=== PATIENT | female | born 1955 | race Caucasian/White ===

== ENCOUNTER → 2016-12-14 | Day surgery (SDC) | payer OTHER, SELFPAY | PROVIDERS: Family Provider Family Medicine; Visit Provider Nurse Anesthetist, Certified Registered | DX: M51.16 Intervertebral disc disorders with radiculopathy, lumbar region (principal) | CPT/HCPCS: 62323; 62322; J1040; Q9966 ==

== ENCOUNTER → 2017-03-12 11:40 | Outpatient (POV) | payer OTHER, SELFPAY ==
[2017-03-12 12:14] VITALS: BP 150/82; PULSE 78; RESP 18; O2SAT 94
--- NOTE | 2017-03-12 12:18 | P.CONS_ITS ---
[facility] Pain Management SOAP Note Subjective:: This patient is a pleasant 62-year-old white female who we are treating for low back pain with lumbar radicular symptoms. She did with previous lumbar epidural steroid injections in the past her last one being in January. She now has some increasing numbness down her leg which is affecting her gait. Worse is down her left leg. Her left leg does give out from time to time. Her last CT scan was back in November. I do believe that she would benefit from neurosurgical consult to see if any surgical intervention was with her numbness and nerve compression which is now affecting her gait. Objective:: Alert and oriented ?3 no acute distress. Patient does have an abnormal gait was antalgic left. Strength of the lower extremities spell a 5 on the right and 4 out of 5 on the left. There is some gross sensory deficit down her left leg. Assessment:: Degenerative disc disease of lumbar spine with lumbar radiculopathy symptoms with disc herniation and significant neuroforaminal narrowing. Plan:: We will refer her to Dr. Mart for neurosurgical evaluation. We will follow-up with her after this appointment.
== END ==
PROVIDERS: Family Provider Family Medicine; PCP Family Medicine; Visit Provider Anesthesiology
DX: M51.16 Intervertebral disc disorders with radiculopathy, lumbar region (principal); M48.061 Spinal stenosis, lumbar region without neurogenic claudication
CPT/HCPCS: 99212

== ENCOUNTER → 2018-01-13 15:01 | Outpatient (POV) | payer OTHER, SELFPAY ==
[2018-01-13 15:36] VITALS: BP 170/96; PULSE 66; RESP 18; O2SAT 98; BMI 27.7
--- NOTE | 2018-01-14 07:53 | P.CONS_ITS ---
[facility] Pain Management SOAP Note Subjective:: Patient is a pleasant 62-year-old white female who presents today for follow-up. Patient was seen in the beginning of the urinary clinic and was sent to Dr. Irvin for neurosurgical evaluation. Patient ended up having neck surgery. Patient states her low back is what is giving her the most pain at this time. Patient states she has pain when she is walking and standing. Patient states that she has numbness and tingling going down her legs at this time. Patient states is relieved with forward leaning motion. Patient does have an old CT showing spinal stenosis. Patient states she has had a recent MRI at Dr. Irvin is however we have not received a copy of this. ROS General: no recent weight change, no fever, no sleep disturbances Respiratory: no cough, no shortness of air, no recurring pulmonary infections Cardiovascular/Peripheral Vascular: No chest pain, No palpitations, no edema, no shortness of breath. Gastrointestinal: no incontinence, normal bowel movements reported Genitourinary: no incontinence Musculoskeletal: Back pain, leg pain Psychiatric: normal mood/ affect Neurological: [denies weakness in extremities], [denies balance issues] Objective:: Physical Exam General: Alert and oriented x3, no acute distress, pleasant and cooperative, [on room air] Lungs: Resps E/U, Symmetrical chest expansion, Eyes: PERRL Musculoskeletal: Flexion and extension of lumbar spine somewhat guarded secondary to pain, deep tendon reflexes normal, strength in upper and lower extremities [5/5], slightly antalgic gait noted Neurological: speech clear, production operations inspector equal, no gross sensory deficits Assessment:: Degenerative disc disease lumbar spine with lumbar radiculopathy and post laminectomy syndrome cervical spine, spinal stenosis Plan:: We will have the patient sign a release of information to receive her low back MRI. If the patient has worsening spinal stenosis she may be a candidate for the mild procedure. After review of the MRI and we will set her up for this procedure if it is appropriate. This note was dictated using voice recognition software and may contain errors or omissions
== END ==
PROVIDERS: PCP Nurse Practitioner Family; Visit Provider Clinical Nurse Specialist Family Health
DX: M51.16 Intervertebral disc disorders with radiculopathy, lumbar region (principal); M96.1 Postlaminectomy syndrome, not elsewhere classified; M48.00 Spinal stenosis, site unspecified
CPT/HCPCS: 99213

== ENCOUNTER → 2018-11-26 11:04 | Outpatient (CLI) | payer OTHER, SELFPAY ==
[2018-11-28 06:23] LABS: C difficile Toxins AB, EIA Negative (Negative)
== END ==
PROVIDERS: PCP Nurse Practitioner Family; Visit Provider Nurse Practitioner Family
DX: K52.9 Noninfective gastroenteritis and colitis, unspecified (principal)
CPT/HCPCS: 87045; 87177; 87205; 87324

== ENCOUNTER → 2023-02-06 10:34 | Outpatient (POV) | payer MEDICARE, SELFPAY ==
--- NOTE | 2023-02-06 11:15 | EXP.PAIN.OV ---
HPI Data of Consult Patient: new to practice Consult date: 02/06/23 Requesting Physician: Myranda Mart APRN Primary Care Provider: Jie Ferro Consult Narrative Reason for consult: Low back pain, left foot pain, neck pain, bilateral shoulder pain History of present illness: Ms. Donahue is a 67 year old female who presents today as a new patient. She is a referral from Jie Ferro's office. Today she rates her pain an 8 out of 10. Patient states she has pain in multiple locations including her neck with radiating symptoms into her bilateral shoulders and low back with radiating symptoms to her left foot. She does also state that she has numbness and tingling down her bilateral upper extremities as well as her lower extremities. She does describe her pain as an aching, throbbing sensation with occasional sharp shooting pains or even shocking like sensations. Patient states this is been going on for years and progressively worsened over time. Patient does have a history of neck surgery as well as lumbar fusion possibly. Patient is unsure exactly what procedure she did have done. Patient did see orthopedic surgeon Dr. Irvin in [place] and did have injections as well in the past. Patient was previously with the pain management company with Dr. Galicia. Patient states she had multiple injections however did not really have significant improvement. Patient denies any recent imaging. Patient does have a spinal cord stimulator in place however she is unsure of what company this is. She states this was implanted by her last pain management and that she has not had it reprogrammed for approximately 1 year. Patient states that that office stated that she did not need to be reviewed program but once a year. Patient states that she is switching from their office due to the convenience of location. Patient states that it is harder to drive to [place] and she lives in [place]. Patient states it has been over a year since she has had it reprogrammed. Patient has tried physical therapy in the past however this made her symptoms worse. She has tried [id number] medications such as Tylenol along with heat and ice and topicals with no additional relief. She states that she was told not to take ibuprofen however that is the only thing that gives her improvement so she does continue to use this medication however it does cause some GI upset. Patient does have a history of atrial fibrillation and sees a coding machine operator. Patient is not currently on any scheduled medications. Her Doni has been reviewed and appropriate. Patient does state that she has difficulty pain co-pays and that this has caused her to not go to the doctor very often. CC: Myranda Mart APRN [facility] Disclaimer: The information contained in this section may have been updated after the patient was seen, as this information can be updated by other users. Medical History (Updated 02/06/23 @ 11:42 by Myranda Mart APRN) Anxiety COPD (chronic obstructive pulmonary disease) Depression GERD (gastroesophageal reflux disease) HLD (hyperlipidemia) HTN (hypertension) Family History (Updated 02/06/23 @ 10:44 by Paulina Marmolejo RN) Other Unknown family medical history Social History (Updated 02/06/23 @ 10:45 by Paulina Marmolejo RN) Smoking Status: Current every day smoker tobacco type: cigarettes alcohol intake: never current occupational status: unemployed Travel in the last 8 weeks: None Review of Systems Review of Systems Review of systems:: pertinent systems reviewed and negative unless documented below Review of systems (narrative): Review of Systems: General: No recent weight changes, no fever, no sleep disturbances Respiratory: No cough, no shortness of air, no recurring pulmonary infections Cardiovascular/peripheral vascular: No chest pain, no palpitations, no edema, no shortness of breath Gastrointestinal: No new onset incontinence, normal bowel m
[2023-02-06 11:43] VITALS: BP 143/68; PULSE 61; RESP 18; O2SAT 98; BMI 26.6
== END ==
PROVIDERS: PCP Nurse Practitioner Family; Visit Provider Nurse Practitioner Family
DX: G89.4 Chronic pain syndrome (principal); M50.10 Cervical disc disorder with radiculopathy, unspecified cervical region; M51.16 Intervertebral disc disorders with radiculopathy, lumbar region
CPT/HCPCS: 99202; G0463

== ENCOUNTER → 2023-02-20 15:00 | Outpatient (POV) | payer MEDICARE, SELFPAY ==
[2023-02-20 15:28] VITALS: BP 162/66; PULSE 66; RESP 18; O2SAT 97; BMI 25.8
--- NOTE | 2023-02-20 15:37 | EXP.PAIN.SOA ---
[facility] Pain Management SOAP Note Subjective:: Patient is a pleasant 68-year-old female who presents today for 2-week follow-up. We are currently treating the patient for degenerative disc disease of cervical and lumbar spine with cervical and lumbar radiculopathy symptoms, chronic pain syndrome. Today she rates her pain a 7 out of 10. Patient denies any new trauma or injury. She denies any change location or type of pain that she experiences. At our last visit we did order her compounding cream. She states she did not hear from the pharmacy regarding this medication. Patient states she continues to have chronic low back and leg pain. She does state that she believes a lot of it has to do with arthritis. She states she has recently been prescribed antibiotic and steroids for an upper respiratory infection. Patient states that the steroids really have made a difference. She is asking whether or not if that something that can be used long-term.Patient does have a spinal cord stimulator in place however it has not been reprogrammed for over a year. At our last visit we did discuss that we would have the vaccine customer representative present to reprogram her for better coverage. Patient is on a blood thinner daily for history of A-fib. Her Doni has been reviewed and is appropriate. Review of Systems: General: No recent weight changes, no fever, no sleep disturbances Respiratory: No cough, no shortness of air, no recurring pulmonary infections Cardiovascular/peripheral vascular: No chest pain, no palpitations, no edema, no shortness of breath Gastrointestinal: No new onset incontinence, normal bowel movements reported Genitourinary: No new onset incontinence Musculoskeletal: Low back pain Psychiatric: [Normal mood/affect] Neurological: [Denies weakness in extremities], [denies balance issues] Objective:: Physical Exam: General: Alert and oriented x3, no acute distress, pleasant and cooperative Lungs: Respirations even and unlabored, symmetrical chest expansion Eyes: PERRL Musculoskeletal: Flexion and extension of lumbar [spine] somewhat guarded secondary to pain, [antalgic gait noted] Neurological: Speech clear, no gross sensory deficit Assessment:: Degenerative disc disease of cervical and lumbar spine with cervical and lumbar radiculopathy symptoms, chronic pain syndrome Plan:: Spinal cord stimulator vaccine customer representative was present today and was able to reprogram the patient with better coverage. I will reach out to the local pharmacy regarding the order of the compounding cream. I have discussed with the patient that she still may benefit from additional injections or even possible intrathecal pain pump trial in the future. Patient will return to clinic in 1 month for reevaluation of symptoms and plan of care. Patient has been instructed to contact the clinic with any concerns before the next appointment. Dr. Trevizo has reviewed this note and agrees with this plan of care. This note was dictated using voice recognition software and make contain errors or omissions. [facility] Disclaimer: The information contained in this section may have been updated after the patient was seen, as this information can be updated by other users. Medical History (Updated 02/06/23 @ 11:42 by Myranda Mart APRN) Anxiety COPD (chronic obstructive pulmonary disease) Depression GERD (gastroesophageal reflux disease) HLD (hyperlipidemia) HTN (hypertension) Family History (Updated 02/06/23 @ 10:44 by Paulina Marmolejo RN) Other Unknown family medical history Social History (Updated 02/06/23 @ 10:45 by Paulina Marmolejo RN) Smoking Status: Current every day smoker tobacco type: cigarettes alcohol intake: never current occupational status: retired Travel in the last 8 weeks: None
== END ==
PROVIDERS: PCP Nurse Practitioner Family; Visit Provider Nurse Practitioner Family
DX: M50.10 Cervical disc disorder with radiculopathy, unspecified cervical region (principal); M51.16 Intervertebral disc disorders with radiculopathy, lumbar region; G89.4 Chronic pain syndrome
CPT/HCPCS: 99212; G0463